=== PATIENT | male | born 1960 | race American Indian/Alaskan Native ===

== ENCOUNTER 2021-09-09 05:52 | Day surgery (SDC) | payer OTHER ==
[2021-09-09] MEDS ORDERED: LACTATED RINGERS 1,000 ML ONE (06:24)
[2021-09-09] MEDS ORDERED: LIDOCAINE MPF (2%) 20 MG/1 ML VIAL 5 ML ONE (07:01)
[2021-09-09] MEDS ORDERED: ONDANSETRON 4 MG/2 ML INJ ONE (07:01)
[2021-09-09] MEDS ORDERED: dexAMETHasone 20 MG/5 ML VIAL ONE (07:01)
[2021-09-09] MEDS ORDERED: propofoL 200 MG/20 ML VIAL IV ONE (07:02)
[2021-09-09] MEDS ORDERED: fentaNYL 100 MCG/2 ML INJ ONE (07:02)
[2021-09-09] MEDS ORDERED: ePHEDrine SULFATE 50 MG/1 ML INJ ONE (07:02)
--- NOTE | 2021-09-09 07:21 | Anesthesia Day of Surgery ---
Anesthesia Day of Surgery - Day of Surgery Patient Examined: Yes Patient H&P Reviewed: Yes Patient is NPO: Yes
--- NOTE | 2021-09-09 07:21 | Anesthesia Consultation ---
Anesthesia Consult and Med Hx Date of service: 09/09/21 - Airway Anesthetic Teeth Evaluation: Good (some missing teeth in the back) ROM Head & Neck: Adequate Mental/Hyoid Distance: Adequate Mallampati Class: Class II Intubation Access Assessment: Probably Good - Pre-Operative Health Status ASA Pre-Surgery Classification: ASA2 Proposed Anesthetic Plan: General - Pulmonary Hx Smoking: Yes (CIGARETTES 3/DAY, h/o 30 year/pack) Hx Sleep Apnea: No - Cardiovascular System Hx Peripheral Vascular Disease: Yes (repaired left femoral artery after trauma) - Central Nervous System Hx Psychiatric Problems: No - Hematic Hx Anemia: No Hx Sickle Cell Disease: No - Other Systems Hx Alcohol Use: Yes (WINE- RARE) Hx Substance Use: Yes (MARIJUANA) Hx Cancer: No (elevated PSA)
[2021-09-09] MEDS ORDERED: LACTATED RINGERS 1,000 ML IV SCH (07:30)
[2021-09-09] MEDS ORDERED: MIDAZOLAM 2 MG/2 ML INJ IV NR (08:00)
[2021-09-09] MEDS ORDERED: FAMOTIDINE 20 MG/2 ML INJ IV NR (08:00)
[2021-09-09] MEDS ORDERED: ONDANSETRON 4 MG/2 ML INJ IV PRN (08:30)
[2021-09-09] MEDS ORDERED: GENTAMICIN/NS 80 MG/100 ML 100 ML IV SCH (08:30)
[2021-09-09] MEDS ORDERED: HYDROmorphone 0.5 MG/0.5 ML INJ IV PRN ×2 (08:30)
--- NOTE | 2021-09-09 09:08 | Ultrasound Report ---
Ultrasound Transrectal INDICATION: ELEVATED PSA. COMPARISON: None available. FINDINGS: Images were obtained during prostate biopsy. Prostate volume was 56 cc. See operative note for full details. Signer Name: Rebel Gutierrez MD Signed: 09/09/2021 9:03 AM Workstation Name: [id number]
--- NOTE | 2021-09-09 09:17 | Operative Report ---
DATE OF SURGERY: 09/09/2021 DATE OF PROCEDURE: 09/09/2021 at approximately 8 a.m. PREOPERATIVE DIAGNOSIS: Elevated prostate-specific antigen. POSTOPERATIVE DIAGNOSIS: Elevated prostate-specific antigen. OPERATIVE PROCEDURE: Transrectal ultrasound-guided prostate needle biopsy. ATTENDING: Justo Tarango MD VENEER MATCHER: None. ANESTHESIA: General. ESTIMATED BLOOD LOSS: 10 mL DRAINS: None. COMPLICATIONS: None. SPECIMENS: Prostate needle biopsies. INDICATIONS FOR PROCEDURE: The patient is a 60-year-old man with an elevated PSA. DESCRIPTION OF PROCEDURE: After induction of suitable anesthesia and proper positioning and preparation in the dorsal lithotomy position, a diagnostic transrectal ultrasound was performed. The patient had a 55 gram prostate. He did not have any obvious nodules. He did have a transitional zone nodularity and hypertrophy. Using ultrasonography, sextant biopsies of the prostate were taken in the usual manner. A total of 12 biopsies were taken. Once complete, the probe was removed. There was excellent hemostasis. The patient was then awakened from anesthesia and transferred to the recovery room in stable condition. He tolerated the procedure well. He will return in approximately 2 weeks for pathology review. TID: [id number] RECEIPT: [id number] NAVIN/SOLO
[2021-09-09 12:11] VITALS: BP 119/84
--- NOTE | 2021-09-09 13:45 | Post Anesthesia Evaluation ---
- Post Anesthesia Evaluation Patient Participated: Yes Airway Patent: Yes Stable Respiratory Function: Yes Nausea/Vomiting: No Temp > 96.8F: Yes Pain Manageable: Yes Adequeate Hydration: Yes Anesthesia Complications: No Block Receding Appropriately: Not Applicable Patient on Ventilator: No
== END 2021-09-09 10:00 | disposition home or self-care (01) ==
LOC: OR 05:52
PROVIDERS: ATTEND Urology
DX: R97.20 Elevated prostate specific antigen [PSA] (principal); I73.9 Peripheral vascular disease, unspecified; K21.9 Gastro-esophageal reflux disease without esophagitis; F17.210 Nicotine dependence, cigarettes, uncomplicated; Z88.8 Allergy status to other drugs, medicaments and biological substances; Z72.89 Other problems related to lifestyle; Z98.890 Other specified postprocedural states
CPT/HCPCS: 55700; 76872; 88305; 88344; J1100; J1580; J1956; J2250; J2405; J2704; J3010; J3490; J7120